=== PATIENT | female | born 1950 | race Caucasian/White ===

== ENCOUNTER → 2016-11-27 | Outpatient (CLI) | payer BC ==
[~2016-11-27] MED LIST: CELEXA PO; DITROPAN5 MG PO; GABAPENTIN300 MG PO; LEVEMIR FL100 UNIT/1 SQ; LORTAB 7.5-3251 EACH PO; METFORMIN PO; MICRONASE5 M1 PO; NOVOLOG FL100 UNIT/1 SQ; REQUIP1 MG PO; TYLENOL325 M1 PO; ZESTORETIC 10-1 EAC1 PO
--- NOTE | ~2016-11-27 | EKG ---
PATIENT: SUMEET VICENTE UNIT #: [id number] Ventricular Rate: 71 BPM Atrial Rate: 71 BPM P-R Interval: 172 ms QRS Duration: 138 ms Q-T Interval: 424 ms QTC Calculation(Bezet): 460 ms P [place]: 86 degrees Calculated R [place]: -44 degrees Calculated T [place]: 6 degrees Diagnosis Line: Normal sinus rhythm Diagnosis Line: Left axis deviation Diagnosis Line: Right bundle branch block Diagnosis Line: Abnormal ECG Diagnosis Line: When compared with ECG of 30-MAR-2015 09:47, Diagnosis Line: Borderline criteria for Lateral infarct are no Diagnosis Line: longer Present Diagnosis Line: Confirmed by SHOAIB FONSECA MD ([id number]) on 11/27/2016 Diagnosis Line: 7:22:07 PM INTERPRETING MD: RAYMUNDO TAY
[2016-11-27 09:52] LABS: BUN/CREATININE RATIO 15.55; CALCIUM SERUM 9.6 mg/dL (8.4-10.2); CREATININE SERUM 0.9 mg/dL (0.6-1.4); GLOM FILT RATE Estimated 67.6 mL/min (>60); POTASSIUM 3.8 mmol/L (3.5-5.1)
== END | disposition home or self-care (01) ==
LOC: CAMB 07:29
PROVIDERS: Surgery
DX: Z01.818 Encounter for other preprocedural examination (principal); K43.9 Ventral hernia without obstruction or gangrene
CPT/HCPCS: 36415; 80048; 93005

== ENCOUNTER 2016-12-12 09:46 | Observation (INO) | payer BC ==
[~2016-12-12] VITALS: Ht 162.6 cm; Wt 105.0 kg
--- NOTE | ~2016-12-12 | DS ---
Unit #: [id number] #: [id number] Patient: SUMEET VICENTE [id number] [address] [place], [place] [address] [id number] MR#: [id number] NAME: SUMEET VICENTE ROOM: 462 Age: 66 Sex: F Admission Date: 12/12/2016 : 1950 Discharge Date: 12/14/2016 Attending Physician: Fransisco Batista M.D. Primary Care Physician: Noelle Razo M.D. DISCHARGE SUMMARY HISTORY AND HOSPITAL COURSE Ms. Vicente is a 65-year-old female, who was brought in the morning of surgery for a laparoscopic ventral hernia repair by Dr. Batista. It was a very large hernia and she was admitted postoperatively for pain control and observation. On the first postoperative day, she was afebrile, but she was not taking p.o. and still had a significant amount of discomfort. Over the next 24 hours, she remained afebrile with stable vital signs. Her pain became better controlled and she was able to ambulate independently. We were able to advance her diet and this morning, she is tolerating a regular diet. She has the expected postoperative discomfort, otherwise her abdomen is benign. Postoperative labs were unremarkable. She will be discharged home today to undergo diet as tolerated, to ambulate ad sven, but do no heavy lifting or strenuous activity. She can use laxatives as needed and she may shower, but not submerge her wounds under water in a tub. She is to call [phone] for a followup appointment with Dr. Batista. A prescription for hydrocodone 7.5 mg tablets was left for pain control. The patient's med reconciliation sheet was completed. She will be discharged home in stable condition. Dictated by... Matt Erickson M.D. SHAYNA/jose TD: 12/15/2016 15:11 JOB #: [id number] DISCHARGE SUMMARY Page 1 of 1 X Matt Erickson MD DISCHARGE SUMMARY
--- NOTE | ~2016-12-12 | OR ---
Unit #: [id number] #: [id number] Patient: SUMEET VICENTE [id number] [address] [place], [place] [address] [id number] Charly MR#: [id number] NAME: SUMEET VICENTE ROOM: 462 Date of Procedure: 12/12/2016 Admission Date: 12/12/2016 Surgeon: Fransisco Batista M.D. : 1950 Attending Physician: Fransisco Batista M.D. Primary Care Physician: Noelle Razo M.D. OPERATIVE REPORT PREOPERATIVE DIAGNOSIS Incarcerated incisional hernia. POSTOPERATIVE DIAGNOSIS 15 cm x 20 cm incarcerated incisional hernia. PROCEDURE PERFORMED Laparoscopic ventral hernia repair with 25 cm x 33 cm Ventralight mesh. ECONOMIC ADVISER King Huynh M.D. ANESTHESIA General anesthesia. Total procedural time 63 minutes. ASA class III. COMPLICATIONS None. INDICATIONS FOR PROCEDURE The patient is a 65-year-old lady, who has a large incisional hernia from previous colon resection in 2009. She presents for laparoscopic repair. DESCRIPTION OF PROCEDURE The patient was taken to the operating theater and placed in supine position. General anesthesia was induced. The abdomen was prepped and draped. A 5-mm Optiview trocar was placed in the left upper quadrant without difficulty. The abdomen was insufflated to 15 mmHg with CO2. Under direct vision, I placed left lower quadrant 10 mm, right upper quadrant 5 mm, right lower quadrant 5 mm. General inspection of the abdomen revealed a very large hernia with incarcerated small bowel and omentum. This was taken down with combination of sharp and blunt dissection. I identified the lap band tubing, which appeared to be in good order. This was not involved in the hernia. Once I took down the adhesions, I was able to use a 10 x 13 inch or 25 cm x 33 cm Ventralight mesh. This was held in place with single-stranded Vicryl sutures and delivered transcutaneous. I then secured this with a SorbaFix Tacker in 2 circumferential rows of tacks with at least 5 cm coverage in all circumference. Hemostasis was adequate. I removed the ports under direct vision with no evidence of abdominal hemorrhage. The wounds were closed with 4-0 Vicryl. The sutures were cut at skin level. The patient Unit #: [id number] #: [id number] Patient: SUMEET VICENTE tolerated the procedure well and sent to recovery room in good condition. Dictated by... Maria Dolores Spaulding/jose TD: 12/12/2016 17:14 JOB #: [id number] OPERATIVE REPORT Page 1 of 1 X Fransisco Batista MD X PROCEDURE OPERATIVE NOTE
[~2016-12-12 09:46] MED LIST changes: -LORTAB 7.5-3251 EACH PO; -TYLENOL325 M1 PO
[2016-12-12 11:30] LABS: BUN/CREATININE RATIO 18.75; CALCIUM SERUM 9.3 mg/dL (8.4-10.2); CREATININE SERUM 0.8 mg/dL (0.6-1.4); POTASSIUM 4.1 mmol/L (3.5-5.1)
[2016-12-13 03:36] LABS: BASOPHIL% 0.2 % (0-2.5); EOSINOPHIL% 0.2 % (0.0-7.0); HEMATOCRIT 37.8 % (35.0-45.0); HEMOGLOBIN 12.9 gm/dL (12.0-16.0); LYMPHOCYTE# 0.9 X10e3 (1.0-3.5); LYMPHOCYTE% 6.9 % (17.0-45.0); MEAN CELL VOLUME 89.8 FL (83-96); MEAN CORPUSCULAR HEMOGLOBIN 30.6 PG (28-34); MEAN CORPUSCULAR HGB CONC 34.1 g/dL (30-36); MEAN PLATELET VOLUME 8.6 FL (6.5-11.5); MONOCYTE# 1.1 X10e3 (0-1.0); MONOCYTE% 8.8 % (3.0-12.0); NEUTROPHIL# 10.5 X10e3 (1.5-7.1); NEUTROPHIL% 83.9 % (40-75); PLATELET COUNT 211 X10e3 (140-420); RED BLOOD COUNT 4.21 X10e (3.90-5.30); RED CELL DISTRIBUTION WIDTH 13.6 % (11.0-15.5); WHITE BLOOD COUNT 12.5 X10e3 (4.0-10.5)
[2016-12-13 03:38] LABS: DIFF IND NO
[2016-12-13 04:38] LABS: BUN/CREATININE RATIO 12.5; CALCIUM SERUM 9.1 mg/dL (8.4-10.2); CREATININE SERUM 0.8 mg/dL (0.6-1.4); POTASSIUM 4.8 mmol/L (3.5-5.1)
[2016-12-14] MEDS ORDERED: TYLENOL325 M1 PO (09:49)
[2016-12-14] MEDS ORDERED: LORTAB 7.5-3251 EACH PO (09:51)
== END 2016-12-14 11:12 | disposition home or self-care (01) | DRG 394 ==
LOC: CSUR 09:46 → CPACUOF 13:00 → CSUR 13:18 → C4C 16:19 → CPACUOF 16:19 → C4C 12-14 11:12
PROVIDERS: Surgery
DX: K43.0 Incisional hernia with obstruction, without gangrene (principal); I10 Essential (primary) hypertension; K21.9 Gastro-esophageal reflux disease without esophagitis; E66.01 Morbid (severe) obesity due to excess calories; M19.90 Unspecified osteoarthritis, unspecified site; Z68.41 Body mass index [BMI] 40.0-44.9, adult; Z91.048 Other nonmedicinal substance allergy status; Z79.899 Other long term (current) drug therapy; Z90.49 Acquired absence of other specified parts of digestive tract; Z98.84 Bariatric surgery status
CPT/HCPCS: 80048; 82947; 85025; 96372; 96374; 96376; G0378; J0330; J0690; J1644; J2250; J2270; J2405; J2710; J3010